=== PATIENT | male | born 1960 | race Caucasian/White ===

== ENCOUNTER 2017-09-06 22:30 | Emergency (ER) | payer BC ==
[~2017-09-06] VITALS: Ht 167.6 cm; Wt 93.0 kg
[2017-09-07] MEDS ORDERED: POTASSIUM CHLORIDE 20 MEQ TAB CR PO STA (01:45)
[2017-09-07 02:41] VITALS: BP 135/74
== END 2017-09-07 02:25 | disposition home or self-care (01) ==
LOC: FSED 22:30
DX: G45.9 Transient cerebral ischemic attack, unspecified (principal); E87.6 Hypokalemia; R42 Dizziness and giddiness
CPT/HCPCS: 70450; 71046; 80053; 81003; 81025; 82553; 84484; 85025; 93005; 99284